=== PATIENT | male | born 1970 | race Two or more races ===

== ENCOUNTER 2020-11-17 18:37 | Emergency (ER) | payer OTHER ==
[~2020-11-17] VITALS: Ht 167.6 cm; Wt 95.3 kg
--- NOTE | 2020-11-17 19:13 | NUR ---
XRAY AT BEDSIDE.
[2020-11-17 19:30] VITALS: BP 141/89
[2020-11-17] MEDS ORDERED: IBUP-1957 PO (20:10)
[2020-11-17] MEDS ORDERED: ATOR10TA PO ×2 (20:26→20:28)
--- NOTE | 2020-11-17 20:49 | NUR ---
Patient discharged to home in stable condition. Written and verbal after care instructions given. Patient verbalizes understanding of instruction. Pt ambulatory with a steady gait
== END 2020-11-17 20:17 | disposition home or self-care (01) ==
LOC: EDSEX 18:41 → ER 18:41
DX: S29.011A Strain of muscle and tendon of front wall of thorax, initial encounter (principal); S16.1XXA Strain of muscle, fascia and tendon at neck level, initial encounter; S80.12XA Contusion of left lower leg, initial encounter; E78.5 Hyperlipidemia, unspecified; Z76.0 Encounter for issue of repeat prescription; Z79.899 Other long term (current) drug therapy; V49.49XA Driver injured in collision with other motor vehicles in traffic accident, initial encounter; Y93.89 Activity, other specified; Y92.488 Other paved roadways as the place of occurrence of the external cause; Y99.8 Other external cause status
CPT/HCPCS: 71045-TC